=== PATIENT | female | born 1990 | race Caucasian/White ===

== ENCOUNTER → 2017-08-08 | Outpatient (CLI) | payer BC ==
[2017-08-08 11:49] LABS: BASOPHILS % 1.3 % (0.0-2.0); EOSINOPHILS % 1.1 % (0.0-5.0); HEMATOCRIT. 42.6 % (36.0-48.0); HEMOGLOBIN. 14.3 g/dL (12.0-16.0); LYMPHOCYTES % 40.2 % (20.0-50.0); MEAN CORPUSCULAR HEMOGLOBIN 30.7 pg (28.0-32.0); MEAN CORPUSCULAR VOLUME 91.4 fL (81.0-99.0); MEAN PLATELET VOLUME 8.6 fl (7.4-10.4); MONOCYTES % 4.5 % (2.0-8.0); NEUTROPHILS % 52.9 % (40.0-76.0); PLATELET 318 x1000/uL (130-400); RED BLOOD CELL COUNT 4.66 mill/uL (4.2-5.4); RED CELL DISTRIBUTION WIDTH 12.8 % (11.6-14.6)
[2017-08-08 11:53] LABS: CLARITY URINE CLEAR (CLEAR); COLOR URINE YELLOW (YELLOW); KETONES URINE NEGATIVE (NEGATIVE); LEUKOCYTE ESTERASE URINE NEGATIVE (NEGATIVE); NITRITE URINE NEGATIVE (NEGATIVE); OCCULT BLOOD URINE TRACE (NEGATIVE); PH URINE 5.5 (4.5-8.0); PROTEIN URINE TRACE (NEGATIVE); SPECIFIC GRAVITY URINE 1.023 (1.005-1.030); UROBILINOGEN URINE 0.2 E.U./dL (0.2-1.0)
[2017-08-08 12:12] LABS: CHLORIDE 104 mEq/L (98-107)
[2017-08-08 12:20] LABS: LDL CHOLESTEROL 92 mg/dL (5-100)
[2017-08-08 12:23] LABS: HDL CHOLESTEROL 77 mg/dL (40-59); T4 FREE 0.96 ng/dL (0.76-1.46)
[2017-08-08 12:42] LABS: VITAMIN B12 SERUM 450 pg/mL (211-911)
[2017-08-08 12:56] LABS: FOLIC ACID (FOLATE) SERUM > 20.00 ng/mL (>5.38)
[2017-08-09 09:06] LABS: THYROID PEROXIDASE ANTIBODY 24 IU/mL (0-34)
[2017-08-09 19:06] LABS: ANTI-NUCLEAR ANTIBODIES DIRECT Negative (Negative)
== END | disposition home or self-care (01) ==
LOC: LAB 10:59
PROVIDERS: ATTEND Internal Medicine Endocrinology, Diabetes & Metabolism
DX: E04.8 Other specified nontoxic goiter (principal); L65.8 Other specified nonscarring hair loss; R73.9 Hyperglycemia, unspecified; M54.5 Low back pain
CPT/HCPCS: 36415; 80053; 80061; 81003; 82306; 82607; 82746; 83036; 83520; 83921; 84439; 84443; 85025; 85651; 86038; 86376; 86430; 87086

== ENCOUNTER → 2017-08-22 | Outpatient (CLI) | payer BC ==
[2017-08-24 09:06] LABS: ESTRADIOL 12.1 pg/mL (.); FOLICLE STIMULATING HORMONE 4.6 mIU/mL (.); LUTEINIZING HORMONE 4.6 mIU/mL (.)
[2017-08-26 13:09] LABS: TESTOSTERONE FREE 0.4 pg/mL (0.0-4.2)
== END | disposition home or self-care (01) ==
LOC: LAB 11:20
PROVIDERS: ATTEND Internal Medicine Endocrinology, Diabetes & Metabolism
DX: L65.9 Nonscarring hair loss, unspecified (principal); R73.9 Hyperglycemia, unspecified
CPT/HCPCS: 36415; 82533; 82670; 83001; 83002; 84402; 84403; 87186

== ENCOUNTER → 2017-09-12 | Outpatient (CLI) | payer BC ==
[2017-09-12 12:57] LABS: CHLORIDE 104 mEq/L (98-107)
[2017-09-15 13:10] LABS: A/G RATIO 1.2 (0.7-1.7); ALBUMIN 3.8 g/dL (2.9-4.4); ALPHA-1-GLOBULIN 0.3 g/dL (0.0-0.4); ALPHA-2-GLOBULIN 0.5 g/dL (0.4-1.0); BETA GLOBULIN 0.9 g/dL (0.7-1.3); GAMMA GLOBULINS 1.5 g/dL (0.4-1.8); GLOBULIN TOTAL 3.2 g/dL (2.2-3.9); M-SPIKE Not Observed g/dL (Not Observed)
== END | disposition home or self-care (01) ==
LOC: LAB 12:01
PROVIDERS: ATTEND Internal Medicine Endocrinology, Diabetes & Metabolism
DX: Z00.01 Encounter for general adult medical examination with abnormal findings (principal); R79.89 Other specified abnormal findings of blood chemistry
CPT/HCPCS: 36415; 80048; 84155; 84165

== ENCOUNTER → 2017-09-26 | Outpatient (CLI) | payer BC ==
[2017-09-26 12:14] LABS: T4 FREE 0.89 ng/dL (0.76-1.46)
[2017-09-27 10:07] LABS: MUMPS IGG ANTIBODY 11.5 AU/mL (Immune >10.9); RUBEOLA AB IGG < 25.00 AU/mL (Immune >29.9)
[2017-09-27 13:10] LABS: HEPATITIS B CORE ANTIBODY Negative (Negative)
[2017-09-28 15:06] LABS: QFT MITOGEN VALUE 6.52 IU/mL (.); QFT TB AG MINUS NIL VALUE 0.01 IU/mL (.); QFT TB AG VALUE 0.05 IU/mL (.); QFT TB GOLD Negative (Negative)
== END | disposition home or self-care (01) ==
LOC: LAB 10:32
PROVIDERS: ATTEND Internal Medicine Endocrinology, Diabetes & Metabolism
DX: E04.9 Nontoxic goiter, unspecified (principal); L65.9 Nonscarring hair loss, unspecified
CPT/HCPCS: 36415; 82533; 83498; 84439; 84443; 86480; 86735; 86762; 86765; 86787; 86800; 87186

== ENCOUNTER → 2017-10-24 | Outpatient (CLI) | payer BC | END | disposition home or self-care (01) | LOC: LAB 10:51 | PROVIDERS: ATTEND Internal Medicine Endocrinology, Diabetes & Metabolism | DX: Z00.00 Encounter for general adult medical examination without abnormal findings (principal) | CPT/HCPCS: 36415; 86706 ==